=== PATIENT | female | born 1945 | race Hispanic/Latino ===

== ENCOUNTER → 2019-07-27 | Day surgery (SDC) | payer MEDICARE ==
[2019-07-25 10:04] LABS: BASOPHILS # (AUTO) 0.1 (0.0-0.1); BASOPHILS % 1.2 % (0.0-1.0); EOSINOPHILS # (AUTO) 0.2 (0.0-0.4); EOSINOPHILS % 2.2 % (0.0-6.0); HEMATOCRIT 44.1 % (34.2-44.1); HEMOGLOBIN 13.8 g/dL (12.0-16.0); LYMPHOCYTES # (AUTO) 1.6 (1.0-3.2); LYMPHOCYTES % 18.4 % (18.0-39.1); MEAN CORPUSCULAR HEMOGLOBIN 29.4 pg (28-32); MEAN CORPUSCULAR HGB CONC 31.3 g/dL (31-35); MEAN CORPUSCULAR VOLUME 93.8 fL (81-99); MONOCYTES # (AUTO) 0.4 (0.2-0.8); MONOCYTES % 4.9 % (4.4-11.3); NEUTROPHILS # (AUTO) 6.3 (2.1-6.9); NEUTROPHILS % 73.1 % (38.7-80.0); PLATELET COUNT 263 x10e3/uL (140-360); RED CELL DISTRIBUTION WIDTH 12.8 % (11.7-14.4)
[2019-07-25 10:18] LABS: PROTHROMBIN TIME 13.8 seconds (11.9-14.5)
[2019-07-25 10:26] LABS: ALBUMIN 3.7 g/dL (3.5-5.0); ANION GAP 12.3 mmol/L (8-16); CALCIUM 9.2 mg/dL (8.4-10.2); CREATININE, SERUM 1.63 mg/dL (0.57-1.11); POTASSIUM 4.3 mmol/L (3.5-5.1)
--- NOTE | 2019-07-25 17:20 | NUR ---
Dr. Justin Nick notified of creatinine 1.63, BUN 28, and eGFR 31. No new orders.
[~2019-07-27] VITALS: Ht 152.4 cm; Wt 56.2 kg
[2019-07-27] VITALS (11 sets, daily range): BP systolic 111–177; BP diastolic 61–80
[~2019-07-27] MED LIST: ALLOPURINOL100 MG PO; ASPIR 8181 MG PO; ATORVASTATIN CA10 MG PO; CARVEDILOL3.125 MG PO; CLOPIDOGREL BISULFATE 75 MG TAB ONE; CLOPIDOGREL75 MG PO; ENTRESTO 49 MG1 EACH PO; FENTANYL CITRATE/PF 100MCG/2 ML INJ ONE; HEPARIN SOD (PORCINE) 1000 UNIT/ML 30ML ONE; HEPARIN SOD/SOD CHLORIDE 2,000 ML ONE; HYDRALAZINE HCL 20 MG/ML VIAL ONE; HYDROCODONE/APAP 5MG-325MG TAB ONE; IOPAMIDOL 370 MG/ML 200 ML INFUS..BTL INJ ONE; LIDOCAINE HCL 2% LOCAL 20 ML VIAL ONE; MIDAZOLAM HCL 2 MG/2 ML VIAL ONE; NITROGLYCERIN/D5W 200 MCG/ML 250 ML ONE; ONDANSETRON HCL INJ 2MG/ML 2ML 2 MG/ML VIAL ONE; SODIUM CHLORIDE 0.9% 1000ML 1,000 ML ONE
--- OUTSIDE RECORDS SUMMARY | 2019-07-27 06:10 | XMS REPORT ---
Author Author [facility] Address Unknown Phone Unavailable Care Team Providers Care Silk Spooler Name Role Phone Unavailable Unavailable Payers Payer Name Policy Type Policy Number Effective Date Expiration Date Problems This patient has no known problems. Allergies, Adverse Reactions, Alerts Allergy Name Allergy Type Status Severity Reaction(s) Onset Date Inactive Date Treating Clinician Comments morphine DA Active MO 2018-12-12 00:00:00 hydrocodone DA Active MO 2018-12-12 00:00:00 acetaminophen DA Active MO 2018-12-12 00:00:00 hydromorphone DA Active MO 2018-12-12 00:00:00 acetaminophen DA Active AK 2018-04-26 00:00:00 morphine DA Active MO 2017-10-03 00:00:00 hydrocodone DA Active MO 2017-10-03 00:00:00 hydromorphone DA Active MO 2017-10-03 00:00:00 Medications This patient has no known medications. Encounters Start Date/Time End Date/Time Encounter Type Admission Type Attending Clinicians Care Facility Care Department Encounter ID 2019-05-04 23:11:00 2019-05-04 23:11:00 Outpatient E [facility] Results Test Description Test Time Test Comments Text Results Atomic Results Result Comments ARTERIAL BLOOD GAS 2019-05-01 23:57:00 ARTERIAL BLOOD GAS PH (test code=PHA) 7.430 7.35-7.45 ARTERIAL BLOOD GAS PCO2 (test code=PCO2A) 37.0 mmHg 35-45 ARTERIAL BLOOD GAS PO2 (test code=PO2A) 85 mmHg 80-100 BICARBONATE TOTAL HCO3 (test code=HCO3) 24.5 mmol/L 22.0-26.0 BASE EXCESS (test code=BHUMI) 0.0 mmol/L -4-4 ABG O2 SATURATION (test code=SATA) 97 % 90-100 ABG DELIVERY (test code=RICO) Room Air Performed by certified heading and priming operator at [facility] ABG TEMPERATURE (test code=TEMPA) 98.6 F ABG SITE (test code=SITEA) L Rad TCO2 ARTERIAL (test code=TCO2A) 26 - XR CHEST 1 [id number] 23:41:00 FAX: Luan Oneil MD [phone] [place]: St: PRE Name: ALEJANDRA NAIR [facility] : [birth year] Age/S: 73/F [address] [place] [address] Unit #: [id number] Loc: [address] [address] Phys: Luan Barnes MD Acct: [id number] Dis Date: Status: PRE ER PHONE #: [phone] Exam Date: 05/01/20192338 FAX #: [phone] Reason: SOB EXAMS: CPT CODE: [id number] XR CHEST 1 V 38273 Study: - XR CHEST 1 V 05/01/2019 10:48 PM Patient Name: ALEJANDRA LOPEZ MR: [id number] OB: 1945; Age: 73 years y/o Female Ordering Physician: Luan batres MD Clinical Indication: SOB Comparison: December 12, 2018 x-ray FINDINGS LUNGS: The lungs are clear o f consolidation, pleural effusion, and pneumothorax. HEART A ND MEDIASTINUM: Heart size at the upper limits of normal to mildly enlarge d with a left subclavian automatic implantable cardiac defibrillator. Medi an sternotomy wires. LINES: None. OSSEOUS STRUCTURES : No fracture, dislocation, or suspicious focal osseous lesion. OTHER: None. IMPRESSION: No acute abnormality as above discussed. SL: DEANNE at 2761 Reported and signed by: Itz Medina M.D. CC: Luan faustin MD Technologist: RT Monica (R) Trnscrd Date/Time/By: 05/01/2019 (407) : Justin y: [email or web address] Orig Print D/T: S: 05/01/2019 (6725) PAGE 1 Signed Report HEPATIC FUNCTION [id number] 23:35:00* Test Item Value Reference Range Comments TOTAL PROTEIN (test code=PROT) 8.5 g/dL 6.4-8.2 ALBUMIN (test code=ALB) 3.70 g/dL 3.4-5.0 BILIRUBIN TOTAL (test code=BILT) 0.6 MG/DL <1.5 BILIRUBIN DIRECT (test code=BILD) 0.20 MG/DL 0.0-0.30 BILIRUBIN INDIRECT (test code=BILIND) 0.40 MG/DL SGOT/AST (test code=AST) 20 IUnit/L 15-37 SGPT/ALT (test code=ALT) 18 IUnit/L 15-65 ALKALINE PHOSPHATASE TOTAL (test code=ALKP) 166 IUnit/L 20-125 [id number] 23:35:00* Test Item Value Reference Range Comments LIPASE (test code=LIP) 154 IUnit/L 73-393 [id number] 23:35:00* Test Item Value Reference Range Comments MAGNESIUM (test code=MAG) 2.10 mg/dL 1.8-2.4 TSH REFLEX TO [id number] 23:35:00* Test Item Value Reference Range Comments TSH REFLEX TO FT4 (test code=TSHREFLEX) 6.36 IU/mL 0.42-5.47 B-TYPE NATRIURETIC [id number] 23:33:00* Test Item Value Reference Range Comments B-TYPE NATRIURETIC PEPTIDE (test code=BNP) 829.0 PG/ML 0-100 PROTHROMBIN [id number] 23:21:00* Test Item Value Reference Range Comments PROTHROMBIN TIME PATIENT (test code=PTP) 11.2 SECONDS 9.3-12.9 INTERNATIONAL NORMAL RATIO (test code=INR) 1.0 0.8-1.2 TARGET INR BY INDICATION Indication INR1. Prophylaxis of venous thrombosis 2.0 - 3.0 (orthopedic surgery), Prophylaxis of venous thrombosis (other than high-risk surgery), Treatment of Deep Vein Thrombosis/Pulmonary Embolism, Prevention of systemic embolism - Tissue heart valves, Acute Myocardial Infarction (to prevent systemic embolism), Valvular heart disease, Atrial Fibrillation, Bileaflet mechanical valve in aortic position.2. Mechanical prosthetic valves (high risk), 2.5 - 3.5 Presence of Lupus Anticoagulant or Antiphospholipid Antibodies, Prevention of systemic embolism - Acute Myocardial Infarction (to prevent recurrent infarct). THROMBOPLASTIN TIME [id number] 23:21:00* Test Item Value Reference Range Comments THROMBOPLASTIN TIME PARTIAL (test code=PTT) 22.3 Seconds 25.0-39.5 Therapeutic Range: 50.4 - 88.3 Seconds Effective 08/16/2018 [id number] 23:21:00* Test Item Value Reference Range Comments D-DIMER (test code=DDIMER) 571 ng/mlFEU <=500 THROMBOSIS AND/OR PULMONARY EMBOLISM AND THE CLINICAL CUT- OFF VALUE FOR EXCLUSION (500 ng/mL FEU) OF THESE CONDITIONSIS VALIDATED BY THE CONTENT STRATEGIST OF THE METHOD. A NEGATIVE D-DIMER RESULT WHEN COMBINED WITH A CLINICALASSESSMENT OF LOW PRETEST PROBABILITY HAS BEEN SHOWN TO HAVEA HIGH NEGATIVE PREDICTIVE VALUE OF DVT OR PE. D-DIMER VALUES >500 ng/mL FEU ARE NOT DIAGNOSTIC FOR DVT, PEor DIC WITHOUT OTHER CONFIRMATORY TESTS AND APPROPRIATECLINICAL EUALUATIONS. TROPONIN-I [id number] 23:12:00* Test Item Value Reference Range Comments TROPONIN-I RAPID (test code=TROPIRAP) 0.00 ng/mL 0.00-0.08 Performed by certified heading and priming operator at [facility] Negative: <=0.08 Positive: >=0.09An elevated troponin value alone is not sufficient todiagnose a myocardial infarction. Rather, the patient sclinical presentation (history, physical exam) and ECGshould be used in conjunction with troponin in thediagnostic evaluation of suspected myocardial infarction. Aserial sampling protocol is recommended to facilitate the identification of temporal changes in troponin levels characteristic of MS. CBC W/AUTO [id number] 23:09:00* Test Item Value Reference Range Comments WHITE BLOOD CELL (test code=WBC) 10.77 x10 3/uL 4.5-11.0 RED BLOOD CELL (test code=RBC) 4.70 x10 6/uL 3.54-5.02 HEMOGLOBIN (test code=HGB) 14.1 g/dL 11.0-15.0 HEMATOCRIT (test code=HCT) 44.4 % 33.0-45.0 MEAN CELL VOLUME (test code=MCV) 94.5 fL 81.0-99.0 MEAN CELL HGB (test code=MCH) 30.0 pg 27.0-33.0 MEAN CELL HGB CONCETRATION (test code=MCHC) 31.8 g/dL 33.0-37.0 RED CELL DISTRIBUTION WIDTH CV (test code=RDW) 13.5 % 11.5-14.5 RED CELL DISTRIBUTION WIDTH SD (test code=RDW-SD) 47.0 fL 37.0-54.0 PLATELET COUNT (test code=PLT) 216 x10 3/uL 150-400 MEAN PLATELET VOLUME (test code=MPV) 9.9 fL 7.0-9.0 NEUTROPHIL % (test code=NT%) 66.3 % 56.0-77.0 IMMATURE GRANULOCYTE % (test code=IG%) 0.5 % 0.0-2.0 LYMPHOCYTE % (test code=LY%) 23.4 % 14.0-32.0 MONOCYTE % (test code=MO%) 6.2 % 4.8-9.0 EOSINOPHIL % (test code=EO%) 2.3 % 0.3-3.7 BASOPHIL % (test code=BA%) 1.3 % 0.0-2.0 NUCLEATED RBC % (test code=NRBC%) 0.0 % 0-0 NEUTROPHIL # (test code=NT#) 7.14 x10 3/uL 2.0-7.6 IMMATURE GRANULOCYTE # (test code=IG#) 0.05 x10 3/uL 0.00-0.03 LYMPHOCYTE # (test code=LY#) 2.52 x10 3/uL 1.0-3.8 MONOCYTE # (test code=MO#) 0.67 x10 3/uL 0.1-0.8 EOSINOPHIL # (test code=EO#) 0.25 x10 3/uL 0.0-0.2 BASOPHIL # (test code=BA#) 0.14 x10 3/uL 0.0-0.2 NUCLEATED RBC # (test code=NRBC#) 0.00 x10 3/uL 0.0-0.1 MANUAL DIFF REQUIRED (test code=MDIFF) NO CHEMISTRY 8 [id number] 23:07:00* Test Item Value Reference Range Comments ISTAT-SODIUM (test code=NAP) MMOL/L 134-147 ISTAT-POTASSIUM (test code=KP) MMOL/L 3.4-5.0 ISTAT-CHLORIDE (test code=CLP) MMOL/L 100-108 ISTAT CARBON DIOXIDE (test code=ISTAT-CO2) mmol/L 21-33 ISTAT CALCIUM IONIZED (test code=ISTAT-MILE) MG/DL 1.12-1.32 ISTAT-GLUCOSE (test code=GLUP) MG/DL 70-110 ISTAT-BUN (test code=BUNP) MG/DL 7-18 BEDSIDE CREATININE (test code=CREATBED) MG/DL 0.6-1.3 GLOMERULAR FILTRATION RATE POC (test code=GFRBED) 26 ML/MIN CHEMISTRY 8 [id number] 23:07:00* Test Item Value Reference Range Comments ISTAT-SODIUM (test code=NAP) 140 MMOL/L 134-147 ISTAT-POTASSIUM (test code=KP) 4.5 MMOL/L 3.4-5.0 ISTAT-CHLORIDE (test code=CLP) 106 MMOL/L 100-108 Performed by certified heading and priming operator at [facility] ISTAT CARBON DIOXIDE (test code=ISTAT-CO2) 25.0 mmol/L 21-33 ISTAT CALCIUM IONIZED (test code=ISTAT-MILE) 1.08 MG/DL 1.12-1.32 ISTAT-GLUCOSE (test code=GLUP) 144 MG/DL 70-110 ISTAT-BUN (test code=BUNP) 26 MG/DL 7-18 BEDSIDE CREATININE (test code=CREATBED) 2.0 MG/DL 0.6-1.3 GLOMERULAR FILTRATION RATE POC (test code=GFRBED) 26 ML/MIN [id number] 11:48:00* Test Item Value Reference Range Comments GLUBED (test code=GLUBED) 221 MG/DL 70-110 Performed by certified heading and priming operator at [facility] B-TYPE NATRIURETIC [id number] 09:15:00* Test Item Value Reference Range Comments B-TYPE NATRIURETIC PEPTIDE (test code=BNP) 402.8 PG/ML 0-100 [id number] 08:45:00* Test Item Value Reference Range Comments GLUBED (test code=GLUBED) 153 MG/DL 70-110 Performed by certified heading and priming operator at [facility] BASIC METABOLIC [id number] 08:34:00* Test Item Value Reference Range Comments SODIUM (test code=NA) 140 mEq/L 134-147 POTASSIUM (test code=K) 3.7 mEq/L 3.4-5.0 CHLORIDE (test code=CL) 104 mEq/L 100-108 CARBON DIOXIDE (test code=CO2) 26 mEq/L 21-33 ANION GAP (test code=GAP) 14 0-20 GLUCOSE (test code=GLU) 116 mg/dL 70-110 BLOOD UREA NITROGEN (test code=BUN) 45 mg/dL 7-18 GLOMERULAR FILTRATION RATE (test code=GFR) 17.3 70-80 Units of measure=ml/min/1.73 m2 CREATININE (test code=CREAT) 2.7 mg/dL 0.6-1.3 CALCIUM (test code=CA) 8.5 mg/dL 8.0-10.5 [id number] 08:34:00* Test Item Value Reference Range Comments MAGNESIUM (test code=MAG) 2.40 mg/dL 1.8-2.4 CBC W/AUTO [id number] 08:02:00* Test Item Value Reference Range Comments WHITE BLOOD CELL (test code=WBC) 9.07 x10 3/uL 4.5-11.0 RED BLOOD CELL (test code=RBC) 4.87 x10 6/uL 3.54-5.02 HEMOGLOBIN (test code=HGB) 13.3 g/dL 11.0-15.0 HEMATOCRIT (test code=HCT) 42.6 % 33.0-45.0 MEAN CELL VOLUME (test code=MCV) 87.5 fL 81.0-99.0 MEAN CELL HGB (test code=MCH) 27.3 pg 27.0-33.0 MEAN CELL HGB CONCETRATION (test code=MCHC) 31.2 g/dL 33.0-37.0 RED CELL DISTRIBUTION WIDTH CV (test code=RDW) 14.9 % 11.5-14.5 RED CELL DISTRIBUTION WIDTH SD (test code=RDW-SD) 47.5 fL 37.0-54.0 PLATELET COUNT (test code=PLT) 269 x10 3/uL 150-400 MEAN PLATELET VOLUME (test code=MPV) 9.5 fL 7.0-9.0 NEUTROPHIL % (test code=NT%) 76.2 % 56.0-77.0 IMMATURE GRANULOCYTE % (test code=IG%) 0.3 % 0.0-2.0 LYMPHOCYTE % (test code=LY%) 14.6 % 14.0-32.0 MONOCYTE % (test code=MO%) 6.0 % 4.8-9.0 EOSINOPHIL % (test code=EO%) 1.4 % 0.3-3.7 BASOPHIL % (test code=BA%) 1.5 % 0.0-2.0 NUCLEATED RBC % (test code=NRBC%) 0.0 % 0-0 NEUTROPHIL # (test code=NT#) 6.91 x10 3/uL 2.0-7.6 IMMATURE GRANULOCYTE # (test code=IG#) 0.03 x10 3/uL 0.00-0.03 LYMPHOCYTE # (test code=LY#) 1.32 x10 3/uL 1.0-3.8 MONOCYTE # (test code=MO#) 0.54 x10 3/uL 0.1-0.8 EOSINOPHIL # (test code=EO#) 0.13 x10 3/uL 0.0-0.2 BASOPHIL # (test code=BA#) 0.14 x10 3/uL 0.0-0.2 NUCLEATED RBC # (test code=NRBC#) 0.00 x10 3/uL 0.0-0.1 MANUAL DIFF REQUIRED (test code=MDIFF) NO [id number] 20:25:00* Test Item Value Reference Range Comments GLUBED (test code=GLUBED) 99 MG/DL 70-110 Performed by certified heading and priming operator at [facility] [id number] 17:18:00* Test Item Value Reference Range Comments GLUBED (test code=GLUBED) 216 MG/DL 70-110 Performed by certified heading and priming operator at [facility] [id number] 11:12:00* Test Item Value Reference Range Comments TROPONIN-I (test code=TROPI) 0.017 ng/mL 0.000-0.045 Negative: <=0.045 Positive: >=0.046 Correlation with serial results, other cardiac markers andclinical findings is necessary to determine the clinicalsignificance of this result. Results using different methodologies should not be comparedto one another as quantitative results may vary by method. COMMENTS: 3 troponins total (including troponin done in ED)[id number] 07:33:00* Test Item Value Reference Range Comments TROPONIN-I (test code=TROPI) < 0.015 ng/mL 0.000-0.045 Negative: <=0.045 Positive: >=0.046 Correlation with serial results, other cardiac markers andclinical findings is necessary to determine the clinicalsignificance of this result. Results using different methodologies should not be comparedto one another as quantitative results may vary by method. COMMENTS: 3 troponins total (including troponin done in ED)- CT HEAD/BRAIN W/O [id number] 21:08:00 Name: ALEJANDRA LOPEZ [facility] : 1945 Age/S: 73 / F [address] [place] [address] Unit #: [id number] Loc: [place] [address] Phys: Ross Clarke MD Acct: [id number] Dis Date: Status: REG ER PHONE #: [phone] Exam Date: 12/12/20182055 FAX #: [phone] Reason: hypertension, headache EXAMS: CPT CODE: [id number] CT HEAD/BRAIN W/O CONT [address] HEAD INDICATION: hypertension, headache. TECHNIQUE: Unenhanced CT was performed from the skull vertex to the foramen magnum with axial, coronal and sagittal reconstructions. CT imaging performed at this location utilizes radiation dose optimization technique which includes one or more of the followin) Automated exposure control; 2) Adjustment of the mA and/or kV according to patient's size; 3) Use of iterative reconstruction techniques. DLP (mGy-cm): 420 COMPARISONS: CT head 11/06/2018 FINDINGS: The paranasal sinuses are clear as visualized. The mastoid air cells and middle ears appear clear as visualized. There is no acute depressed skull fracture. There is a moderate burden of atherosclerotic vascular calcification of the intracranial arteries. 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 There is a stable moderate burden of chronic small vessel ischemic disease lesions in the frontoparietal white matter. There is a small chronic stable cortical infarct in the right frontal vertex. There is mild generalized brain parenchymal volume loss. The cerebral ventricles are normal caliber. There is no cerebral mass effect, midline shift, intracranial hemorrhage or acute large vessel territory cerebral cortical edema. IMPRESSION: 1. There is no acute intracranial process. 2. There is a stable moderate burden of chronic small vessel ischemic disease lesions in the frontoparietal w jame matter. There is a small stable chronic infarct of the right front al cortex near the vertex. at 2107 Reported and signed by: Rob Sanches D.O. PAGE 1 Signed Report (CONTINUED) Name: ALEJANDRA LOPEZ [facility] : 1945 Age/S: 73 / F [address] [place] [address] Blvd Unit #: [id number] Loc: [place] [address] Phys: Ross Clarke MD Acct: [id number] Dis Date: Status: REG ER PHONE #: [phone] Exam Date: 12/12/20182055 FAX #: [phone] Reason: hypertension, headache EXAMS: CPT CODE: [id number] CT HEAD/BRAIN W/O CONT 93581 <Continued> CC: Ross Clarke MD Technologist:RT Yani(R)(CT) CTDI: DLP: Trnscb Date/Time: 12/12/2018 (2107) [email or web address] Orig Print D/T: S: 12/12/2018 (2110) PAGE 2 Signed Report B-TYPE NATRIURETIC [id number] 20:14:00* Test Item Value Reference Range Comments B-TYPE NATRIURETIC PEPTIDE (test code=BNP) 1906.7 PG/ML 0-100 BASIC METABOLIC [id number] 19:47:00* Test Item Value Reference Range Comments SODIUM (test code=NA) 143 mEq/L 134-147 POTASSIUM (test code=K) 4.5 mEq/L 3.4-5.0 CHLORIDE (test code=CL) 109 mEq/L 100-108 CARBON DIOXIDE (test code=CO2) 25 mEq/L 21-33 ANION GAP (test code=GAP) 14 0-20 GLUCOSE (test code=GLU) 136 mg/dL 70-110 BLOOD UREA NITROGEN (test code=BUN) 26 mg/dL 7-18 GLOMERULAR FILTRATION RATE (test code=GFR) 25.9 70-80 Units of measure=ml/min/1.73 m2 CREATININE (test code=CREAT) 1.9 mg/dL 0.6-1.3 CALCIUM (test code=CA) 8.9 mg/dL 8.0-10.5 HEPATIC FUNCTION [id number] 19:47:00* Test Item Value Reference Range Comments TOTAL PROTEIN (test code=PROT) 7.7 g/dL 6.4-8.2 ALBUMIN (test code=ALB) 3.70 g/dL 3.4-5.0 BILIRUBIN TOTAL (test code=BILT) 1.80 mg/dL 0.0-1.0 BILIRUBIN DIRECT (test code=BILD) 0.50 MG/DL 0.0-0.30 BILIRUBIN INDIRECT (test code=BILIND) 1.30 MG/DL SGOT/AST (test code=AST) 20 IUnit/L 15-37 SGPT/ALT (test code=ALT) 12 IUnit/L 15-65 ALKALINE PHOSPHATASE TOTAL (test code=ALKP) 130 IUnit/L 20-125 [id number] 19:47:00* Test Item Value Reference Range Comments LIPASE (test code=LIP) 113 IUnit/L 73-393 [id number] 19:47:00* Test Item Value Reference Range Comments TROPONIN-I (test code=TROPI) < 0.015 ng/mL 0.000-0.045 Negative: <=0.045 Positive: >=0.046 Correlation with serial results, other cardiac markers andclinical findings is necessary to determine the clinicalsignificance of this result. Results using different methodologies should not be comparedto one another as quantitative results may vary by method. CBC W/AUTO [id number] 19:33:00* Test Item Value Reference Range Comments WHITE BLOOD CELL (test code=WBC) 9.89 x10 3/uL 4.5-11.0 RED BLOOD CELL (test code=RBC) 5.18 x10 6/uL 3.54-5.02 HEMOGLOBIN (test code=HGB) 14.1 g/dL 11.0-15.0 HEMATOCRIT (test code=HCT) 45.4 % 33.0-45.0 MEAN CELL VOLUME (test code=MCV) 87.6 fL 81.0-99.0 MEAN CELL HGB (test code=MCH) 27.2 pg 27.0-33.0 MEAN CELL HGB CONCETRATION (test code=MCHC) 31.1 g/dL 33.0-37.0 RED CELL DISTRIBUTION WIDTH CV (test code=RDW) 15.0 % 11.5-14.5 RED CELL DISTRIBUTION WIDTH SD (test code=RDW-SD) 47.7 fL 37.0-54.0 PLATELET COUNT (test code=PLT) 269 x10 3/uL 150-400 MEAN PLATELET VOLUME (test code=MPV) 8.9 fL 7.0-9.0 NEUTROPHIL % (test code=NT%) 67.7 % 56.0-77.0 IMMATURE GRANULOCYTE % (test code=IG%) 0.4 % 0.0-2.0 LYMPHOCYTE % (test code=LY%) 23.1 % 14.0-32.0 MONOCYTE % (test code=MO%) 6.2 % 4.8-9.0 EOSINOPHIL % (test code=EO%) 0.9 % 0.3-3.7 BASOPHIL % (test code=BA%) 1.7 % 0.0-2.0 NUCLEATED RBC % (test code=NRBC%) 0.0 % 0-0 NEUTROPHIL # (test code=NT#) 6.70 x10 3/uL 2.0-7.6 IMMATURE GRANULOCYTE # (test code=IG#) 0.04 x10 3/uL 0.00-0.03 LYMPHOCYTE # (test code=LY#) 2.28 x10 3/uL 1.0-3.8 MONOCYTE # (test code=MO#) 0.61 x10 3/uL 0.1-0.8 EOSINOPHIL # (test code=EO#) 0.09 x10 3/uL 0.0-0.2 BASOPHIL # (test code=BA#) 0.17 x10 3/uL 0.0-0.2 NUCLEATED RBC # (test code=NRBC#) 0.00 x10 3/uL 0.0-0.1 MANUAL DIFF REQUIRED (test code=MDIFF) NO - XR CHEST 1 [id number] 19:25:00 FAX: Ross Clarke MD [phone] [place]: St: PRE Name: ALEJANDRA NAIR [facility] : [birth year] Age/S: 73/F [address] [place] [address] Unit #: [id number] Loc: [place] [address] Phys: Ross Clarke MD Acct: [id number] Dis Date: Status: PRE ER PHONE #: [phone] Exam Date: 12/12/20181914 FAX #: [phone] Reason: Chest Pain EXAMS: CPT CODE: [id number] XR CHEST 1 V 56933 CHEST, SINGLE VIEW H ISTORY: Chest pain Comparison made to prior chest x-ray dated . FINDINGS: The heart is enlarged. Pulmonary vascularity is normal. There is been previous midline sternotomy. Multil ead left subclavian transvenous pacemaker/defibrillator position is stable . IMPRESSION: Stable chest, no acute abnormali ty demonstrated compared to 08/30/18. SL:01 at 1924 Reported and signed by: Prince Cotton M.D. CC: Ross Clarke MD Technologist: JENNIFER Blanton RT(R); Ramos Ashraf RT(R) Trnscrd Date/Time/By: 12/12/2018 (1924) : By: Shahida Orig Print D/T: S: 12/12/2018 (1928) PAGE 1 Signed Report - CT C-SPINE W/O [id number] 19:41:00 Name: ALEJANDRA LOPEZ [facility] : 1945 Age/S: 73 / F [address] [place] [address] Unit #: [id number] Loc: [place] [address] Phys: Jeannine Freeman SECURITY MESSENGER Acct: [id number] Dis Date: Status: REG ER PHONE #: [phone] Exam Date: 11/06/20181916 FAX #: [phone] Reason: neck pain s/p fall EXAMS: CPT CODE: [id number] CT C-SPINE W/O CONT 41446 CT CERVICAL SPINE WITHOUT CONTRAST INDICATION: neck pain s/p fall. TECHNIQUE: Unenhanced CT of the cervical spine was performed with axial, coronal and sagittal reconstructions. CT imaging performed at this location utilizes radiation dose optimization technique which includes one or more of the followin) Automated exposure control; 2) Adjustment of the mA and/or kV according to patient's size; 3) Use of iterative reconstruction techniques. DLP (mGy-cm): 146 COMPARISONS: CT cervical spine 08/24/2016 FINDINGS: There are surgical changes of sternotomy. There is multifocal dental disease. There is diffuse idiopathic skeletal hyperostosis of the spine. There is no acute cervical spine fracture or dislocation. There is no spinal canal stenosis detected. There is moderate atherosclerotic calcification of the carotid vasculature. There is no cervical lymphadenopathy, mass or organized fluid collection. There is mild atherosclerotic vascular calcification of the aorta. The lung apices reveal no acute process. IMPRESSION: 1. Intact cervical spine. 2. There is moderate atherosclerotic calcification of the carotid vasculature. 3. There is multifocal dental disease. at 1941 Reported and signed by: Rob Sanches D.O. PAGE 1 Signed Report (CONTINUED) Name: ALEJANDRA LOPEZ [facility] : 1945 Age/S: 73 / F [address] [place] [address] Unit #: [id number] Loc: [place] [address] Phys: Jeannine Freeman Acct: [id number] Dis Date: Status: REG ER PHONE #: [phone] Exam Date: 11/06/20181916 FAX #: [phone] Reason: neck pain s/p fall EXAMS: CPT CODE: [id number] CT C-SPINE W/O CONT 94154 < Continued> CC: Jeannine Freeman Technologist:Naomi Cottrell, RT(R)(CT) CTDI: DLP: Trnscb Date/Time: 11/06/2018 (1940) [email or web address] Orig Print D/T: S: 11/06/2018 (1943) PAGE 2 Signed Report - CT HEAD/BRAIN W/O [id number] 19:35:00 Name: ALEJANDRA LOPEZ [facility] : 1945 Age/S: 73 / F [address] [place] [address] Bl Unit #: [id number] Loc: [place] [address] Phys: Jeannine Freeman Acct: [id number] Dis Date: Status: REG ER PHONE #: [phone] Exam Date: 11/06/20181916 FAX #: [phone] Reason: left head pain s/p fall hitting head-on plavix/ EXAMS: CPT CODE: [id number] CT HEAD/BRAIN W/O CONT [id number] HEAD INDICATION: left head pain s/p fall hitting head-on Plavix. TECHNIQUE: Unenhanced CT was performed from the skull vertex to the foramen magnum with axial, coronal and sagittal reconstructions. CT imaging performed at this location utilizes radiation dose optimization technique which includes one or more of the followin) Automated exposure control; 2) Adjustment of the mA and/or kV according to patient's size; 3) Use of iterative reconstruction techniques. DLP (mGy-cm): 939 COMPARISONS: CT head 08/24/2016 FINDINGS: The paranasal sinuses are clear as visualized. The mastoid air cells and middle ears appear clear as visualized. There is no acute depressed skull fracture. There is a moderate burden of atherosclerotic vascular calcification of the intracranial arteries. There is a stable moderate burden of multifocal chronic small vessel ischemic lesions within the white matter and bilateral cerebellum. The cerebral ventricles are normal caliber. 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 There is mild generalized brain parenchymal volume loss. There is no cerebral mass effect, midline shift, intracranial hemorrhage or acute large vessel territory cerebral cortical edema. IMPRESSION: 1. There is no acute intracranial process. There is no intracranial hemorrhage or acute cerebral edema. 2. There is a stable moderate burden of chronic small vessel ischemic disease lesions in the frontoparietal white matter and bilateral cerebellum. 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 PAGE 1 Signed Report (CONTINUED) Name: ALEJANDRA LOPEZ [facility] : 1945 Age/S: 73 / F [address] [place] [address] Unit #: [id number] Loc: [place] [address] Phys: Jeannine Freeman Acct: [id number] Dis Date: Status: REG ER PHONE #: [phone] Exam Date: 11/06/20181916 FAX #: [phone] Reason: left head pain s/p fall hitting head-on plavix/ EXAMS: CPT CODE: [id number] HEAD/BRAIN W/O CONT 50666 <Continued > at 193 Reported and signed by: Rob Sanches D.O. CC: Jeannine Freeman Technologist:Naomi Cottrell, RT( R)(CT) CTDI: DLP: Trnscb Date/Time: 11/06/2018 (1934) t.BRANDYR .JB33 Orig Print D/T: S: 11/06/2018 (1937) PAGE 2 Signed Report - XR FINGER(S) 2+V [id number] 18:49:00 FAX: Jeannine Freeman [phone] [place]: St: REG Name: ALEJANDRA NAIR [facility] : [birth year] Age/S: 73/F [address] [place] [address] Unit #: [id number] Loc: [place] [address] Phys: Jeannine Freeman Acct: [id number] Dis Date: Status: REG ER PHONE #: [phone] Exam Date: 11/06/2018 181 FAX #: [phone] Reason: thumb bruising/swelling/pain s/p fall EXAMS: CPT CODE: [id number] XR FINGER(S) 2+[place] [address] Right thumb 3 view H ISTORY: Pain following trauma. No comparisons. FINDI NGS: There is an avulsion fracture along the dorsal aspect of the base of the distal phalanx of the right thumb. No other fracture or dislocation. IMPRESSION: Small avulsion fract ure from the dorsal aspect of the base of the distal phalanx of the righ t thumb. SL:01 at 1849 Reported and signed by: Prince Cotton M.D. CC: Jeannine [facility]LL [facility] nologist: RT Cate(R) Trnscrd Date/Ti me/By: 11/06/2018 (1848) : By: Shahida Orig Print D/T: S: 11/06/2018 (446) PAGE 1 Signed Report [id number] 08:16:00* Test Item Value Reference Range Comments GLUBED (test code=GLUBED) 112 MG/DL 70-110 Performed by certified heading and priming operator at [facility] [id number] 21:20:00* Test Item Value Reference Range Comments GLUBED (test code=GLUBED) 115 MG/DL 70-110 Performed by certified heading and priming operator at [facility] - XR CHEST 1 [id number] 18:00:00 FAX: Adrian De La O NP [phone] [place]: St: ADM Name: ALEJANDRA NAIR [facility] : [birth year] Age/S: 73/F [address] [place] [address] Blvd Unit #: [id number] Loc: [place] [address] Phys: Adrian De La O SENIOR ACCOUNT CLERK Acct: [id number] Dis Date: Status: ADM IN PHONE #: [phone] Exam Date: 08/30/2018 5635 FAX #: [phone] Reason: SOB EXAMS: CPT CODE: [id number] XR CHEST 1 V 05209 EXAM: CHEST SINGLE VIEW HISTORY: 73-year-old female with shortness of breath COMPARISON: Chest radiograph 08/29/2018 FINDINGS: The lungs are clear. The c ardiomediastinal silhouette is prominent. Aortic calcifications. No acut e osseous abnormality. Left subclavian 3 chamber AICD present. Sternotom y wires noted. IMPRESSION: 1. No acute cardiop ulmonary abnormality. SL: [id number] at 1800 Reported and signed by: Antonio Murrell M.D. CC: Adrian De La O NP Technologist: Ruth Haas os, RT(R)(M) Trnscrd Date/Time/By: 08/30/2018 (1800) : By: [email or web address] Orig Print D/T: S: 08/30/2018 (1804) PAGE 1 Signed Report [id number] 17:28:00* Test Item Value Reference Range Comments GLUBED (test code=GLUBED) 109 MG/DL 70-110 Performed by certified heading and priming operator at [facility] [id number] 12:54:00* Test Item Value Reference Range Comments GLUBED (test code=GLUBED) 142 MG/DL 70-110 Performed by certified heading and priming operator at [facility] B-TYPE NATRIURETIC [id number] 08:18:00* Test Item Value Reference Range Comments B-TYPE NATRIURETIC PEPTIDE (test code=BNP) 543.9 PG/ML 0-100 BASIC METABOLIC [id number] 07:37:00* Test Item Value Reference Range Comments SODIUM (test code=NA) 141 mEq/L 134-147 POTASSIUM (test code=K) 3.9 mEq/L 3.4-5.0 CHLORIDE (test code=CL) 111 mEq/L 100-108 CARBON DIOXIDE (test code=CO2) 24 mEq/L 21-33 ANION GAP (test code=GAP) 10 0-20 GLUCOSE (test code=GLU) 114 mg/dL 70-110 BLOOD UREA NITROGEN (test code=BUN) 38 mg/dL 7-18 GLOMERULAR FILTRATION RATE (test code=GFR) 34.0 70-80 Units of measure=ml/min/1.73 m2 CREATININE (test code=CREAT) 1.5 mg/dL 0.6-1.3 CALCIUM (test code=CA) 7.8 mg/dL 8.0-10.5 [id number] 07:37:00* Test Item Value Reference Range Comments PHOSPHOROUS (test code=PHOS) 4.0 mg/dL 2.5-4.9 [id number] 07:37:00* Test Item Value Reference Range Comments MAGNESIUM (test code=MAG) 2.00 mg/dL 1.8-2.4 CBC W/AUTO [id number] 07:30:00* Test Item Value Reference Range Comments WHITE BLOOD CELL (test code=WBC) 7.14 x10 3/uL 4.5-11.0 RED BLOOD CELL (test code=RBC) 4.83 x10 6/uL 3.54-5.02 HEMOGLOBIN (test code=HGB) 12.3 g/dL 11.0-15.0 HEMATOCRIT (test code=HCT) 40.5 % 33.0-45.0 MEAN CELL VOLUME (test code=MCV) 83.9 fL 81.0-99.0 MEAN CELL HGB (test code=MCH) 25.5 pg 27.0-33.0 MEAN CELL HGB CONCETRATION (test code=MCHC) 30.4 g/dL 33.0-37.0 RED CELL DISTRIBUTION WIDTH CV (test code=RDW) 16.1 % 11.5-14.5 RED CELL DISTRIBUTION WIDTH SD (test code=RDW-SD) 49.8 fL 37.0-54.0 PLATELET COUNT (test code=PLT) 274 x10 3/uL 150-400 MEAN PLATELET VOLUME (test code=MPV) 9.3 fL 7.0-9.0 NEUTROPHIL % (test code=NT%) 69.9 % 56.0-77.0 IMMATURE GRANULOCYTE % (test code=IG%) 0.3 % 0.0-2.0 LYMPHOCYTE % (test code=LY%) 18.9 % 14.0-32.0 MONOCYTE % (test code=MO%) 6.9 % 4.8-9.0 EOSINOPHIL % (test code=EO%) 2.5 % 0.3-3.7 BASOPHIL % (test code=BA%) 1.5 % 0.0-2.0 NUCLEATED RBC % (test code=NRBC%) 0.0 % 0-0 NEUTROPHIL # (test code=NT#) 4.99 x10 3/uL 2.0-7.6 IMMATURE GRANULOCYTE # (test code=IG#) 0.02 x10 3/uL 0.00-0.03 LYMPHOCYTE # (test code=LY#) 1.35 x10 3/uL 1.0-3.8 MONOCYTE # (test code=MO#) 0.49 x10 3/uL 0.1-0.8 EOSINOPHIL # (test code=EO#) 0.18 x10 3/uL 0.0-0.2 BASOPHIL # (test code=BA#) 0.11 x10 3/uL 0.0-0.2 NUCLEATED RBC # (test code=NRBC#) 0.00 x10 3/uL 0.0-0.1 MANUAL DIFF REQUIRED (test code=MDIFF) NO [id number] 01:29:00* Test Item Value Reference Range Comments GLUBED (test code=GLUBED) 110 MG/DL 70-110 Performed by certified heading and priming operator at [facility] [id number] 16:53:00* Test Item Value Reference Range Comments GLUBED (test code=GLUBED) 109 MG/DL 70-110 Performed by certified heading and priming operator at [facility] [id number] 16:37:00* Test Item Value Reference Range Comments TROPONIN-I (test code=TROPI) 0.020 ng/mL 0.000-0.045 Negative: <=0.045 Positive: >=0.046 Correlation with serial results, other cardiac markers andclinical findings is necessary to determine the clinicalsignificance of this result. Results using different methodologies should not be comparedto one another as quantitative results may vary by method. COMMENTS: 3 troponins total (including troponin done in ED)HGBA1C%2018-08-29 16:35:00* Test Item Value Reference Range Comments HGBA1C% (test code=HGBA1C%) 6.8 %A1C 4.8-6.0 [id number] 13:29:00* Test Item Value Reference Range Comments D-DIMER (test code=DDIMER) 505 ng/mlFEU <=500 THROMBOSIS AND/OR PULMONARY EMBOLISM AND THE CLINICAL CUT- OFF VALUE FOR EXCLUSION (500 ng/mL FEU) OF THESE CONDITIONSIS VALIDATED BY THE CONTENT STRATEGIST OF THE METHOD. A NEGATIVE D-DIMER RESULT WHEN COMBINED WITH A CLINICALASSESSMENT OF LOW PRETEST PROBABILITY HAS BEEN SHOWN TO HAVEA HIGH NEGATIVE PREDICTIVE VALUE OF DVT OR PE. D-DIMER VALUES >500 ng/mL FEU ARE NOT DIAGNOSTIC FOR DVT, PEor DIC WITHOUT OTHER CONFIRMATORY TESTS AND APPROPRIATECLINICAL EUALUATIONS. B-TYPE NATRIURETIC [id number] 13:22:00* Test Item Value Reference Range Comments B-TYPE NATRIURETIC PEPTIDE (test code=BNP) 1024.1 PG/ML 0-100 [id number] 13:02:00* Test Item Value Reference Range Comments TROPONIN-I (test code=TROPI) 0.028 ng/mL 0.000-0.045 Negative: <=0.045 Positive: >=0.046 Correlation with serial results, other cardiac markers andclinical findings is necessary to determine the clinicalsignificance of this result. Results using different methodologies should not be comparedto one another as quantitative results may vary by method. COMMENTS: 3 troponins total (including troponin done in ED)CBC W/AUTO DIFF 2018-08-29 12:39:00* Test Item Value Reference Range Comments WHITE BLOOD CELL (test code=WBC) 8.44 x10 3/uL 4.5-11.0 RED BLOOD CELL (test code=RBC) 4.99 x10 6/uL 3.54-5.02 HEMOGLOBIN (test code=HGB) 12.8 g/dL 11.0-15.0 HEMATOCRIT (test code=HCT) 43.1 % 33.0-45.0 MEAN CELL VOLUME (test code=MCV) 86.4 fL 81.0-99.0 MEAN CELL HGB (test code=MCH) 25.7 pg 27.0-33.0 MEAN CELL HGB CONCETRATION (test code=MCHC) 29.7 g/dL 33.0-37.0 RED CELL DISTRIBUTION WIDTH CV (test code=RDW) 16.2 % 11.5-14.5 RED CELL DISTRIBUTION WIDTH SD (test code=RDW-SD) 51.2 fL 37.0-54.0 PLATELET COUNT (test code=PLT) 292 x10 3/uL 150-400 MEAN PLATELET VOLUME (test code=MPV) 9.2 fL 7.0-9.0 NEUTROPHIL % (test code=NT%) 69.8 % 56.0-77.0 IMMATURE GRANULOCYTE % (test code=IG%) 0.5 % 0.0-2.0 LYMPHOCYTE % (test code=LY%) 19.5 % 14.0-32.0 MONOCYTE % (test code=MO%) 6.6 % 4.8-9.0 EOSINOPHIL % (test code=EO%) 1.9 % 0.3-3.7 BASOPHIL % (test code=BA%) 1.7 % 0.0-2.0 NUCLEATED RBC % (test code=NRBC%) 0.0 % 0-0 NEUTROPHIL # (test code=NT#) 5.89 x10 3/uL 2.0-7.6 IMMATURE GRANULOCYTE # (test code=IG#) 0.04 x10 3/uL 0.00-0.03 LYMPHOCYTE # (test code=LY#) 1.65 x10 3/uL 1.0-3.8 MONOCYTE # (test code=MO#) 0.56 x10 3/uL 0.1-0.8 EOSINOPHIL # (test code=EO#) 0.16 x10 3/uL 0.0-0.2 BASOPHIL # (test code=BA#) 0.14 x10 3/uL 0.0-0.2 NUCLEATED RBC # (test code=NRBC#) 0.00 x10 3/uL 0.0-0.1 MANUAL DIFF REQUIRED (test code=MDIFF) NO TROPONIN-I [id number] 12:19:00* Test Item Value Reference Range Comments TROPONIN-I RAPID (test code=TROPIRAP) 0.01 ng/mL 0.00-0.08 Performed by certified heading and priming operator at [facility] Negative: <=0.08 Positive: >=0.09An elevated troponin value alone is not sufficient todiagnose a myocardial infarction. Rather, the patient sclinical presentation (history, physical exam) and ECGshould be used in conjunction with troponin in thediagnostic evaluation of suspected myocardial infarction. Aserial sampling protocol is recommended to facilitate the identification of temporal changes in troponin levels characteristic of MS. CHEMISTRY 8 [id number] 12:14:00* Test Item Value Reference Range Comments ISTAT-SODIUM (test code=NAP) MMOL/L 134-147 ISTAT-POTASSIUM (test code=KP) MMOL/L 3.4-5.0 ISTAT-CHLORIDE (test code=CLP) MMOL/L 100-108 ISTAT CARBON DIOXIDE (test code=ISTAT-CO2) mmol/L 21-33 ISTAT CALCIUM IONIZED (test code=ISTAT-MILE) MG/DL 1.12-1.32 ISTAT-GLUCOSE (test code=GLUP) MG/DL 70-110 ISTAT-BUN (test code=BUNP) MG/DL 7-18 BEDSIDE CREATININE (test code=CREATBED) MG/DL 0.6-1.3 GLOMERULAR FILTRATION RATE POC (test code=GFRBED) 36 ML/MIN CHEMISTRY 8 [id number] 12:14:00* Test Item Value Reference Range Comments ISTAT-SODIUM (test code=NAP) 141 MMOL/L 134-147 ISTAT-POTASSIUM (test code=KP) 5.2 MMOL/L 3.4-5.0 ISTAT-CHLORIDE (test code=CLP) 105 MMOL/L 100-108 Performed by certified heading and priming operator at [facility] ISTAT CARBON DIOXIDE (test code=ISTAT-CO2) 27.0 mmol/L 21-33 ISTAT CALCIUM IONIZED (test code=ISTAT-MILE) 1.14 MG/DL 1.12-1.32 ISTAT-GLUCOSE (test code=GLUP) 138 MG/DL 70-110 ISTAT-BUN (test code=BUNP) 44 MG/DL 7-18 BEDSIDE CREATININE (test code=CREATBED) 1.5 MG/DL 0.6-1.3 GLOMERULAR FILTRATION RATE POC (test code=GFRBED) 36 ML/MIN - XR CHEST 1 [id number] 11:38:00 FAX: Khris Ugarte [phone] [place]: St: REG Name: ALEJANDRA NAIR [facility] : [birth year] Age/S: 73/F [address] [place] [address] Unit #: [id number] Loc: [place] [address] Phys: Khris Ugarte Acct: [id number] Dis Date: Status: REG ER PHONE #: [phone] Exam Date: 08/29/20181134 FAX #: [phone] Reason: Chest Pain EXAMS: CPT CODE: [id number] XR CHEST 1 V 78114 PROCEDURE: CHEST SINGLE VIEW INDICATION: Chest pain COMPARISON: May 2018 FINDINGS: AP portable chest obtained semiupright with the patient slightly rotated to the left. Clothing artifact noted. Pacemaker/ICD leads in place. Previous median sternotomy. Mild prominence of the cardiac jimmy houette is stable allowing for rotation. No gross pulmonary vascular natasha estion. The lungs are clear. No pleural abnormality. No acute skeletal abnormality. IMPRESSION: No acute radiographic abnormality. Enl arged cardiac silhouette. No overt failure at this time. SL: [id number] at 1138 Reported and signed by: Fausto Zepeda M.D. CC: Khris SHANKS Technolog ist: Jose Orourke RT(R) Trnscrd Date/Time/By : 08/29/2018 (1138) : By: Tammie Orig Print D/T: S: 08/29/2018 (114 1) PAGE 1 Signed Report [id number] 12:22:00* Test Item Value Reference Range Comments GLUBED (test code=GLUBED) 127 MG/DL 70-110 Performed by certified heading and priming operator at [facility] [id number] 03:56:00* Test Item Value Reference Range Comments GLUBED (test code=GLUBED) 147 MG/DL 70-110 Performed by certified heading and priming operator at [facility] [id number] 15:54:00* Test Item Value Reference Range Comments GLUBED (test code=GLUBED) 170 MG/DL 70-110 Performed by certified heading and priming operator at [facility] [id number] 11:47:00* Test Item Value Reference Range Comments GLUBED (test code=GLUBED) 78 MG/DL 70-110 Performed by certified heading and priming operator at [facility] [id number] 09:00:00* Test Item Value Reference Range Comments GLUBED (test code=GLUBED) 160 MG/DL 70-110 Performed by certified heading and priming operator at [facility] LACTIC ACID [id number] 22:57:00* Test Item Value Reference Range Comments LACTIC ACID REPEAT (test code=LACTR) 1.1 mmol/L 0.4-1.9 URINALYSIS [id number] 21:28:00* Test Item Value Reference Range Comments UA COLOR (test code=COLU) YELLOW YEL/STRAW UA APPEARANCE (test code=APPU) CLEAR CLEAR UA GLUCOSE DIPSTICK (test code=DGLUU) NEGATIVE NEGATIVE UA BILIRUBIN DIPSTICK (test code=BILU) NEGATIVE NEGATIVE UA KETONE DIPSTICK (test code=KETU) NEGATIVE NEGATIVE UA SPECIFIC GRAVITY (test code=SGU) 1.015 1.005-1.030 UA BLOOD DIPSTICK (test code=CRISTAL) 1+ NEGATIVE UA PH DIPSTICK (test code=PAULINA) 6.0 5.0-7.0 UA PROTEIN DIPSTICK (test code=PROU) 4+ NEGATIVE UA UROBILINIOGEN DIPSTICK (test code=URO) 0.2 mg/dL 0.2-1.0 UA NITRITE DIPSTICK (test code=FARHAD) NEGATIVE NEGATIVE UA LEUKOCYTE ESTERASE DIPSTICK (test code=LEUU) 3+ NEGATIVE UA WBC (test code=WBCU) 10-20 WBC/HPF 0-3 UA RBC (test code=RBCU) 0-3 RBC/HPF 0-3 UA BACTERIA (test code=BACU) TRACE /HPF NONE SEEN UA SQUAMOUS CELLS (test code=SQU) 0-5 /HPF NONE SEEN UA MUCUS (test code=MUCU) TRACE /LPF NONE SEEN URINALYSIS [id number] 21:23:00* Test Item Value Reference Range Comments UA COLOR (test code=COLU) YELLOW YEL/STRAW UA APPEARANCE (test code=APPU) CLEAR CLEAR UA GLUCOSE DIPSTICK (test code=DGLUU) NEGATIVE NEGATIVE UA BILIRUBIN DIPSTICK (test code=BILU) NEGATIVE NEGATIVE UA KETONE DIPSTICK (test code=KETU) NEGATIVE NEGATIVE UA SPECIFIC GRAVITY (test code=SGU) 1.015 1.005-1.030 UA BLOOD DIPSTICK (test code=CRISTAL) 1+ NEGATIVE UA PH DIPSTICK (test code=PAULINA) 6.0 5.0-7.0 UA PROTEIN DIPSTICK (test code=PROU) 4+ NEGATIVE UA UROBILINIOGEN DIPSTICK (test code=URO) 0.2 mg/dL 0.2-1.0 UA NITRITE DIPSTICK (test code=FARHAD) NEGATIVE NEGATIVE UA LEUKOCYTE ESTERASE DIPSTICK (test code=LEUU) 3+ NEGATIVE UA WBC (test code=WBCU) WBC/HPF 0-3 UA RBC (test code=RBCU) RBC/HPF 0-3 - CT ABD PELVIS W/O [id number] 21:18:00 Name: JESSICAALEJANDRA HAMPTONERO [facility] : 1945 Age/S: 72 / F [address] [place] [address] Unit #: [id number] Loc: [place] [address] Phys: Stan Garcia MD Acct: [id number] Dis Date: Status: REG ER PHONE #: [phone] Exam Date: 05/22/20182028 FAX #: [phone] Reason: concern for renal stone EXAMS: CPT CODE: [id number] CT ABD PELVIS W/O CONT 09565 PROCEDURE: CT abdomen and pelvis without contrast. Reconstruction images. INDICATION: Clinical concern for renal calculi. Lower back pain with decreased urination. No history of fever TECHNIQUE: GI CONTRAST: None. IV CONTRAST: None. Helical axial imaging was performed from the diaphragm through the symphysis. Coronal and sagittal reformations obtained. COMPARISON: Chest radiograph dated 05/22/2018. CT abdomen pelvis with out contrast dated 07/23/2017. CT abdomen and pelvis with contrast dated 10/13/2012. FINDINGS: This examination is limited for the evaluation of solid organs and vascular structures due to lack of in travenous contrast. LOWER CHEST: Small bilateral pleural effusions . The heart is enlarged. Cardiac leads identified. Median sternotomy wi res. Linear bibasilar scarring or atelectasis identified. S OLID ORGANS: Gallbladder has been surgically removed. Liver is grossly un remarkable. No biliary dilatation. Normal pancreas. Spleen is not enlar ged. No adrenal nodularity. Mild bilateral renal atrophy. No renal calc pauline or hydronephrosis. No significant retroperitoneal edema. BOWEL: Distal esophagus, stomach appear normal. Normal small bowel with in the abdomen pelvis. No obstruction or ileus. No focal inflammation. Scattered colonic diverticulosis. No focal acute colonic inflammation. N ormal appendix in the right lower quadrant. PERITONEUM: Small volu me fluid in the pelvis. No free air. No ventral wall defects. No well-d efined fluid collection. RETROPERITONEUM: Mild to moderate vascula r wall calcifications. No aneurysm. No enlarged retroperitoneal lymphade nopathy. PELVIS: Hypodensity in the right adnexa may represent ova cal cyst measuring up to 24 mm. This demonstrates simple well-defined homogeneous hypodense appearance and measures 5-6 Hounsfield units. T his could represent a bladder diverticulum considering the chronic PAGE 1 Signed Report (CONTINUED) Name: ALEJANDRA LOPEZERO [facility] : 1945 A ge/S: 72 / F [address] [place], [place] [address]vd Unit #: [id number] Loc : [place] [address] Phys: Stan Garcia MD Acct: [id number] Dis Date: Status: REG ER PHONE #: [phone] Exam Date: 05/22/20182028 FAX #: [phone] Reason: concern for renal stone EXAMS: CPT CODE: [id number] CT ABD PELVIS W/O CONT 89682 <Continued> stable appearance. Vascular wall calcifications in the pelvis. Uterus and adnexa appear otherwise unremarkable. MUSCULOSKELETAL: Diffusely decreased bone density. Multilevel degenerative changes identified. IMPRESSION: 1. Small bilateral pleural effusions. Cardiomegaly. Postsurgical changes in the lower chest. 2. Cholecystectomy. 3. No urinary calculi, hydronephrosis or retroperitoneal edema. 4. Colonic diverticulosis. 5. Small volume free fluid in the pelvis. 6. Simple appearing right ovarian cyst or bladder diverticulum demonstrates stable appearance. SL: MRODJOSSE-H at 2117 Reported and signed by: Kaden Pompa M.D. CC: Stan Garcia MD; Syed Garsia MD Technologist:Karley Payne RT(R) CTDI: DLP: Trnscb Date/Time: 05/22/2018 (2117) t.SDR.MSR4 Orig Print D/T: S: 05/22/2018 (2120) CTDI: DLP: PAGE 2 Signed Report B-TYPE NATRIURETIC [id number] 20:49:00* Test Item Value Reference Range Comments B-TYPE NATRIURETIC PEPTIDE (test code=BNP) 2467.1 PG/ML 0-100 - XR CHEST 1 [id number] 20:33:00 FAX: Stan Correia MD [phone] [place]: St: [facility] FAX: Syed Whitfield [phone] Name: JESSICAALEJANDRA KAYLI [facility] : 1945 Age/S: 72/F [address] [place] [address] Unit #: [id number] Loc: [place] [id number] Phys: Stan Garcia MD Acct: [id number] Dis Date: Status: REG ER PHONE #: [phone] Exam Date: 05/22/20182025 FAX #: [phone] Reason: Chest Pain EXAMS: CPT CODE: [id number] XR CHEST 1 V 48840 PROCEDURE: Chest, AP on 05/22/2018 at 2019 hours. INDICATION: Chest Pain. Lower back pain. Decreased urination. No fever. COMPARISON: Chest radiographs dated 04/26/2018, 04/02/2018. FINDINGS: Support tubes, catheters, devices: Stable left chest pacemaker defibrillator device with multiple leads overlying the mediastinum. Midline median sternotomy wires. No pleural effusion or pneumothorax. Cardiac silhouette is enlarged. Mediastinum is stable with postsurgical changes. Lungs are clear. No significant central pulmonary venous congestion. IMPRESSION: 1. Stable enlarged cardiac silhouette with postsurgical changes overlying the mediastinum. SL: [id number]-H at 2032 Reported and signed by: Kaden Pompa M.D. CC: Stan Garcia MD; Syed Garsia MD Technologist: RT Sam(R) Trnmigel Sanders te/Time/By: 05/22/2018 (2032) : By: RadhaMSR4 Orig Print D/T: S: 05/22 (2035) PAGE 1 Signed Report HEPATIC FUNCTION [id number] 20:17:00* Test Item Value Reference Range Comments TOTAL PROTEIN (test code=PROT) 8.5 g/dL 6.4-8.2 ALBUMIN (test code=ALB) 3.50 g/dL 3.4-5.0 BILIRUBIN TOTAL (test code=BILT) 0.70 mg/dL 0.0-1.0 BILIRUBIN DIRECT (test code=BILD) 0.30 MG/DL 0.0-0.30 BILIRUBIN INDIRECT (test code=BILIND) 0.40 MG/DL SGOT/AST (test code=AST) 15 IUnit/L 15-37 SGPT/ALT (test code=ALT) 16 IUnit/L 15-65 ALKALINE PHOSPHATASE TOTAL (test code=ALKP) 162 IUnit/L 20-125 [id number] 20:17:00* Test Item Value Reference Range Comments LIPASE (test code=LIP) 168 IUnit/L 73-393 CBC W/AUTO [id number] 20:08:00* Test Item Value Reference Range Comments WHITE BLOOD CELL (test code=WBC) 10.52 x10 3/uL 4.5-11.0 RED BLOOD CELL (test code=RBC) 4.95 x10 6/uL 3.54-5.02 HEMOGLOBIN (test code=HGB) 13.2 g/dL 11.0-15.0 HEMATOCRIT (test code=HCT) 43.8 % 33.0-45.0 MEAN CELL VOLUME (test code=MCV) 88.5 fL 81.0-99.0 MEAN CELL HGB (test code=MCH) 26.7 pg 27.0-33.0 MEAN CELL HGB CONCETRATION (test code=MCHC) 30.1 g/dL 33.0-37.0 RED CELL DISTRIBUTION WIDTH CV (test code=RDW) 16.7 % 11.5-14.5 RED CELL DISTRIBUTION WIDTH SD (test code=RDW-SD) 54.0 fL 37.0-54.0 PLATELET COUNT (test code=PLT) 326 x10 3/uL 150-400 MEAN PLATELET VOLUME (test code=MPV) 9.1 fL 7.0-9.0 NEUTROPHIL % (test code=NT%) 73.1 % 56.0-77.0 IMMATURE GRANULOCYTE % (test code=IG%) 1.0 % 0.0-2.0 LYMPHOCYTE % (test code=LY%) 16.2 % 14.0-32.0 MONOCYTE % (test code=MO%) 7.3 % 4.8-9.0 EOSINOPHIL % (test code=EO%) 0.9 % 0.3-3.7 BASOPHIL % (test code=BA%) 1.5 % 0.0-2.0 NUCLEATED RBC % (test code=NRBC%) 0.0 % 0-0 NEUTROPHIL # (test code=NT#) 7.69 x10 3/uL 2.0-7.6 IMMATURE GRANULOCYTE # (test code=IG#) 0.11 x10 3/uL 0.00-0.03 LYMPHOCYTE # (test code=LY#) 1.70 x10 3/uL 1.0-3.8 MONOCYTE # (test code=MO#) 0.77 x10 3/uL 0.1-0.8 EOSINOPHIL # (test code=EO#) 0.09 x10 3/uL 0.0-0.2 BASOPHIL # (test code=BA#) 0.16 x10 3/uL 0.0-0.2 NUCLEATED RBC # (test code=NRBC#) 0.00 x10 3/uL 0.0-0.1 MANUAL DIFF REQUIRED (test code=MDIFF) NO TROPONIN-I [id number] 19:58:00* Test Item Value Reference Range Comments TROPONIN-I RAPID (test code=TROPIRAP) 0.03 ng/mL 0.00-0.08 Performed by certified heading and priming operator [facility] Global Task Force with joint leadership from the EuropeanSociety of Cardiology (ESC), the [place] [employer] (ACCF), the [place] [employer](AHA) and the World [employer] Federation (WHF) refined past criteria of myocardial infarction (MS) with a universal definition of myocardial infarction that supports the use of cTnI as a preferred biomarker for myocardial injury. The universal definition of MS, according to this taskforce, is defined as a typical rise and gradual fall ofcardiac biomarkers (preferably troponin) with at least onevalue above the 99th percentile of the upper reference limit (URL) together with evidence of myocardial ischemia with at least one of the following:* ischemic symptoms,* pathological Q waves on electrocardiogram (ECG),* ischemic ECG changes,* or imaging evidence of new loss of viable myocardium or new regional wall motion abnormality. An elevated troponin value alone is not sufficient todiagnose a myocardial infarction. Rather, the patient sclinical presentation (history, physical exam) and ECGshould be used in conjunction with troponin in thediagnostic evaluation of suspected myocardial infarction. Aserial sampling protocol is recommended to facilitate the identification of temporal changes in troponin levels characteristic of MS. LACTIC ACID [id number] 19:53:00* Test Item Value Reference Range Comments LACTIC ACID POC (test code=LACTP) 2.1 MMOL/L 0.90-1.70 Performed by certified heading and priming operator at [facility] CHEMISTRY 8 [id number] 19:51:00* Test Item Value Reference Range Comments ISTAT-SODIUM (test code=NAP) MMOL/L 134-147 ISTAT-POTASSIUM (test code=KP) MMOL/L 3.4-5.0 ISTAT-CHLORIDE (test code=CLP) MMOL/L 100-108 ISTAT CARBON DIOXIDE (test code=ISTAT-CO2) mmol/L 21-33 ISTAT CALCIUM IONIZED (test code=ISTAT-MILE) MG/DL 1.12-1.32 ISTAT-GLUCOSE (test code=GLUP) MG/DL 70-110 ISTAT-BUN (test code=BUNP) MG/DL 7-18 BEDSIDE CREATININE (test code=CREATBED) MG/DL 0.6-1.3 GLOMERULAR FILTRATION RATE POC (test code=GFRBED) 36 ML/MIN CHEMISTRY 8 [id number] 19:51:00* Test Item Value Reference Range Comments ISTAT-SODIUM (test code=NAP) 141 MMOL/L 134-147 ISTAT-POTASSIUM (test code=KP) 3.9 MMOL/L 3.4-5.0 ISTAT-CHLORIDE (test code=CLP) 106 MMOL/L 100-108 Performed by certified heading and priming operator at [facility] ISTAT CARBON DIOXIDE (test code=ISTAT-CO2) 22.0 mmol/L 21-33 ISTAT CALCIUM IONIZED (test code=ISTAT-MILE) 1.09 MG/DL 1.12-1.32 ISTAT-GLUCOSE (test code=GLUP) 135 MG/DL 70-110 ISTAT-BUN (test code=BUNP) 34 MG/DL 7-18 BEDSIDE CREATININE (test code=CREATBED) 1.5 MG/DL 0.6-1.3 GLOMERULAR FILTRATION RATE POC (test code=GFRBED) 36 ML/MIN
--- NOTE | 2019-07-27 09:43 | NUR ---
0943a Received pt to room #10,bedside report received from STEPHANIE Roblero. Alert oriented and appropriate, PERRLA, respirations even and unlabored to room air. Pulses x4 extremities equal and strong. Pedal pulses PT/DP X4 and marked. Cap fill brisk < 3 sec.Rt groin Mynx site No gross issues pain pallor, pressure or dysrhythmia.Down time 130pm Daughter in lw at BS and dc papers filled out. Skin warm and dry integrity appears left hand IV 20g 100cchrs for 250cc, presents healthy w/o s/s of infiltration or complaint. Abdomen soft and supple. pt offered toileting, denies need to urinate or defecate. No personal affects with patient. Family daughter in law. Pt and family verbalizes understanding of POC. Currently w/o complaint of pain or need. ds/rn
--- NOTE | 2019-07-27 10:24 | Operative Report ---
DATE OF PROCEDURE: SURGEON: Janes Nick DO PROCEDURES PERFORMED: 1. Conscious sedation, 45 minutes. 2. Selective coronary angiography x2. 3. Selective graft angiography. 4. Left heart catheterization. 5. Injection procedure for supravalvular aortography. 6. Percutaneous transluminal coronary angioplasty and drug-eluting stent placement to the right coronary artery. PREPROCEDURE DIAGNOSES: 1. Systolic congestive heart failure. 2. Coronary artery disease, status post coronary artery bypass graft surgery. POSTPROCEDURE DIAGNOSES: 1. Systolic congestive heart failure. 2. Coronary artery disease, status post coronary artery bypass graft surgery. ESTIMATED BLOOD LOSS: Less than 20 mL. SPECIMENS REMOVED: None. PROCEDURE IN DETAIL: After informed consent was obtained, the patient was brought to the cardiac catheterization laboratory in a fasting and nonsedated state. Bilateral groins were prepped and draped in the usual sterile fashion. Lidocaine 2% was infiltrated over the right anterior groin for local anesthesia. Using a micropuncture needle, right common femoral artery was accessed via the modified Seldinger technique and a 5-Yi sheath was placed. The patient received fentanyl and midazolam given by the nurse. Myself and the nurse monitored the patient's physiologic and conscious status throughout the procedure for 45 minutes. Diagnostic coronary angiography was performed using a JL4 and 3DRC catheters. Diagnostic graft angiography was performed using a 3DRC and LCB catheters. Aortography was performed using a pigtail catheter. This was also used to perform the left heart catheterization. Diagnostic imaging revealed a patent left internal mammary artery to the LAD and a patent saphenous vein graft to an obtuse marginal. There were two other saphenous vein grafts that were occluded. Decision was made to perform percutaneous coronary intervention on the right coronary artery due to a proximal 90% stenosis. The right coronary artery was cannulated with a 6-Yi JR4 guide catheter. The patient received systemic heparin for therapeutic anticoagulation. ACT was greater than 250. The patient was given clopidogrel. The proximal lesion was predilated with a 2.5 balloon. The lesion was stented with a 3 x 20 Synergy drug-eluting stent. The patient tolerated the procedure well with no immediate complications. There was excellent angioplasty and stenting results without any evidence of edge dissection, distal embolization, or vessel perforation at the end of the case. She was transferred back to room in stable condition. Hemostasis was achieved via Mynx device. PROCEDURE FINDINGS: 1. There is severe diffuse disease in the left main. 2. There is a bifurcating stent in the LAD and first diagonal. The diagonal branch has mild to moderate disease. The LAD is occluded just after the stent. 3. The ramus intermedius coronary artery has [id number] diffuse disease. 4. The left circumflex coronary provides, has a proximal 70% stenosis. There is competitive flow seen in obtuse marginal vessel. 5. The right coronary artery has a proximal 90% stenosis. The PDA has a severe subtotal stenosis. This vessel fills via collaterals from the left coronary system. 6. There are two saphenous vein grafts that are occluded. The third vein graft could not be selectively cannulated, however, fills when aortography was performed. 7. Left internal mammary artery is patent and fills the left anterior descending coronary artery distally. 8. Left ventricular end-diastolic pressure is 20 mmHg with no aortic valve gradient present upon pullback. INTERVENTIONAL RESULTS: Successful percutaneous coronary intervention of the right coronary artery. Pre-PCI GRANT flow was 2. Post PCI GRANT flow was 3. Postprocedure stenosis less than 10%. IMPRESSION: 1. Severe multivessel coronary artery disease with a patent saphenous vein and left internal mammary artery grafts. 2. Severe right coronary artery stenosis. RECOMMENDATIONS: The patient is now status post percutaneous coronary intervention of the right coronary artery. Continue dual antiplatelet therapy and aggressive medical therapy for heart failure and coronary artery disease. DO GABRIEL Gar/MODL /[id number]
--- NOTE | 2019-07-27 13:30 | NUR ---
1330pm [employer] RECOV[employer] DISCHARGE NURSING NOTE Pt meets DC criteria.Rt groin assessed for s/s of complication and presence of hematoma. Skin warm, dry, no discolor, and pulses present. IV removed from left hand. Distal tip appears intact. VS WNL. Pt denies pain, sob, or need at this time. Family at bedside. Review of discharge paperwork and follow up instructions. verbalized understanding. Pt to wheelchair and transported to front of hospital. Transferred to private vehicle under own strength w/o incident with DC paperwork in hand. - jillian/glen
== END | disposition home or self-care (01) ==
LOC: CATH LAB 06:08
PROVIDERS: ATTEND Internal Medicine Cardiovascular Disease
DX: I25.810 Atherosclerosis of coronary artery bypass graft(s) without angina pectoris (principal); I10 Essential (primary) hypertension; I25.2 Old myocardial infarction; E78.5 Hyperlipidemia, unspecified; Z01.812 Encounter for preprocedural laboratory examination; Z79.02 Long term (current) use of antithrombotics/antiplatelets; Z79.82 Long term (current) use of aspirin; Z68.42 Body mass index [BMI] 45.0-49.9, adult; Z95.1 Presence of aortocoronary bypass graft; Z82.49 Family history of ischemic heart disease and other diseases of the circulatory system
CPT/HCPCS: 93459; C9600; 36415; 80053; 85025; 85610; 92928; 99152; 99153; C1725; C1760; C1769; C1874; J0360; J1644; J2001; J2250; J2405; J3010; J7030; Q9967